=== PATIENT | male | born 1955 | race Caucasian/White ===

== ENCOUNTER 2019-02-19 17:15 | Emergency (ER) | payer MEDICAID ==
[~2019-02-19] VITALS: Ht 175.3 cm; Wt 68.2 kg
[~2019-02-19 17:15] MED LIST: DEPAKOTE250 MG PO; GEODON20 MG PO; GLUCOPHAGE500 MG PO; GLUCOTROL 5 MG T5 MG PO; LYRICA75 MG PO; PLAVIX75 MG PO; ZYPREXA20 MG PO
[2019-02-19 17:19] VITALS: BP 118/52; Ht 175.3 cm; Wt 68.2 kg
[2019-02-19 17:58] LABS: APPEARANCE HAZY (CLEAR); BILIRUBIN NEGATIVE (NEGATIVE); COLOR YELLOW (YELLOW); GLUCOSE NEGATIVE (NEGATIVE); KETONE NEGATIVE (NEGATIVE); NITRITE POSITIVE (NEGATIVE); PROTEIN 1+ mg/dL (NEGATIVE); UROBILINOGEN NORMAL (NORMAL)
[2019-02-19 17:59] LABS: BACTERIA MANY /hpf (NONE SEEN)
[2019-02-19 19:30] LABS: BASOPHILS 0.1 % (0-2); EOSINOPHILS 3.4 % (0-7); HEMATOCRIT 33.7 % (42.0-54.0); HEMOGLOBIN 11.6 g/dL (13.5-17.5); IMMATURE GRANULOCYTES 0.1 % (0-5); MCH 29.1 pg (26.0-34.0); MCHC 34.4 g/dL (31.0-37.0); MCV 84.5 fL (80.0-100.0); MEAN PLATELET VOLUME 8.5 fL (7.4-10.4); NEUTROPHILS 69.4 % (40-80); RBC 3.99 10x6/uL (4.20-6.10); RDW 13.6 % (11.5-14.5); WBC 9.2 10x3/uL (4.8-10.8)
[2019-02-19 19:33] LABS: PLATELET COUNT 165 10x3/uL (130-400)
[2019-02-19 19:56] LABS: ALBUMIN 2.9 g/dL (3.4-5.0); ANION GAP 11.4 mmol/L (8-16); BILIRUBIN - TOTAL 0.41 mg/dL (0.2-1.3); CALCIUM 8.2 mg/dL (8.5-10.1); CARBON DIOXIDE 26.5 mmol/L (21.0-32.0); CREATININE - SERUM 1.3 mg/dL (0.6-1.3); POTASSIUM - SERUM 3.9 mmol/L (3.5-5.1); PROTEIN - SERUM 6.5 g/dL (6.4-8.2)
[2019-02-19] MEDS ORDERED: KEFLEX500 MG PO (20:09)
== END 2019-02-19 21:39 | disposition home or self-care (01) ==
LOC: D.ER 17:15
PROVIDERS: Family Medicine
DX: N39.0 Urinary tract infection, site not specified (principal); T83.518A Infection and inflammatory reaction due to other urinary catheter, initial encounter

== ENCOUNTER 2020-03-09 23:28 | Inpatient (IN) | payer MEDICARE ==
[~2020-03-09] VITALS: Ht 175.3 cm; Wt 61.7 kg
[2020-03-09 23:28] VITALS: BP 98/51
[~2020-03-09 23:28] MED LIST changes: +KEFLEX500 MG PO
[2020-03-09] MEDS ORDERED: NEURONTIN 300300 MG PO (23:33)
[2020-03-09] MEDS ORDERED: VALIUM10 MG PO (23:33)
[2020-03-09] MEDS ORDERED: HYDROCODON-ACE1 EA10 PO (23:33)
[2020-03-09] MEDS ORDERED: CIPRO250 MG PO (23:34)
[2020-03-09] MEDS ORDERED: VENTOLIN HFA [SP8 GM INH (23:34)
[2020-03-10] VITALS (85 sets, daily range): BP systolic 70–141; BP diastolic 40–114; Ht 175.3 cm; Wt 61.7 kg
--- NOTE | 2020-03-10 00:16 | NUR ---
16 FR COUDE INDWELLING VILLA CATHETER INSERTED WITHOUT DIFFICULTY. BALLOON INFLATED WITH 10CC. 100 CC OF BLOOD TINGED OUTPUT AT INSERTION. SECURED TO RIGHT INNER THIGH. URINE SAMPLE SENT TO LAB. STERILE FIELD MAINTAINED. ORIGINAL INSERTION WITH 16 FR PROVED DIFFICULT WITH RESISTANCE. PT PRESENTED FROM EMS WITH BLOOD CLOTS ON PADS. 2 PADS SATURATED.
[2020-03-10 00:36] LABS: CALC OSMOLALITY 290 mosm/kg (275-300); CALCIUM 8.9 mg/dL (8.5-10.1); CARBON DIOXIDE 27.2 mmol/L (21.0-32.0); CHLORIDE - SERUM 104 mmol/L (98-107); CREATININE - SERUM 1.5 mg/dL (0.6-1.3); GLUCOSE 174 mg/dL (74-106); POTASSIUM - SERUM 4.6 mmol/L (3.5-5.1); SODIUM 140 mmol/L (136-145); UREA NITROGEN 36 mg/dL (7-18); eGFR NON AFRICAN AMERICAN 49 mL/min (90-120)
[2020-03-10 00:48] LABS: HEMATOCRIT 43.7 % (42.0-54.0); HEMOGLOBIN 14.7 g/dL (13.5-17.5); MCH 30.5 pg (26.0-34.0); MCHC 33.6 g/dL (31.0-37.0); MCV 90.7 fL (80.0-100.0); MEAN PLATELET VOLUME 8.6 fL (7.4-10.4); RBC 4.82 10x6/uL (4.20-6.10); RDW 14.1 % (11.5-14.5)
[2020-03-10 00:49] LABS: ALKALINE PHOSPHATASE 83 U/L (30-120); BILIRUBIN - TOTAL 0.67 mg/dL (0.2-1.3); C-REACTIVE PROTEIN 1.5 mg/dL (0.0-0.9); MAGNESIUM - SERUM 1.6 mg/dL (1.8-2.4); PRO BNP 679 pg/mL (0-125); PROTEIN - SERUM 7.2 g/dL (6.4-8.2); THYROID STIMULATING HORMONE 1.05 uIU/mL (0.36-3.74)
[2020-03-10 00:57] LABS: PLATELET COUNT 110 10x3/uL (130-400); WBC 1.6 10x3/uL (4.8-10.8)
[2020-03-10 01:01] LABS: BILIRUBIN NEGATIVE (NEGATIVE); GLUCOSE NEGATIVE (NEGATIVE); KETONE NEGATIVE (NEGATIVE); NITRITE NEGATIVE (NEGATIVE); UROBILINOGEN NORMAL (NORMAL)
[2020-03-10 01:02] LABS: BACTERIA MANY /hpf (NEGATIVE); EPITHELIAL CELLS 0-5 /hpf (0-5); WHITE CELLS - URINE 0-5 /hpf (NEGATIVE)
[2020-03-10 01:06] LABS: LIPASE 35 U/L (73-393); TROPONIN-I < 0.017 ng/mL (0.000-0.060)
[2020-03-10 01:19] LABS: ALT (SGPT) 27 U/L (10-68)
[2020-03-10 01:21] LABS: LYMPHOCYTES 9 % (15-50); NEUTROPHILS 75 % (40-80); PLATELET ESTIMATE DECREASED
--- NOTE | 2020-03-10 03:30 | NUR ---
PT ARRIVED TO UNIT ACCOMPANIED BY HOSPITAL STAFF. TRANSFERRED TO BED WITHOUT DIFFICULTY. ASSESSMENT COMPLETED, SEE FLOWSHEET. PIV IN LEFT EJ, LEFT WRIST INFUSING, SEE IV FLOWSHEET.
[2020-03-10 04:27] LABS: BASOPHILS 0.1 % (0-2); EOSINOPHILS 0.1 % (0-7); HEMATOCRIT 37.4 % (42.0-54.0); HEMOGLOBIN 12.1 g/dL (13.5-17.5); LYMPHOCYTES 3.9 % (15-50); MCH 29.7 pg (26.0-34.0); MCHC 32.4 g/dL (31.0-37.0); MCV 91.7 fL (80.0-100.0); MEAN PLATELET VOLUME 8.9 fL (7.4-10.4); MONOCYTES 1.3 % (2-11); NEUTROPHILS 94.6 % (40-80); PLATELET COUNT 117 10x3/uL (130-400); RBC 4.08 10x6/uL (4.20-6.10); RDW 14.2 % (11.5-14.5)
[2020-03-10 04:46] LABS: APTT 29.6 SECONDS (22.8-39.4); INR 1.31 (0.85-1.17); PROTIME 16.2 SECONDS (11.6-15.0)
[2020-03-10 04:49] LABS: ANION GAP 12.5 mmol/L (8-16); BILIRUBIN - TOTAL 0.53 mg/dL (0.2-1.3); CALCIUM 7.6 mg/dL (8.5-10.1); CARBON DIOXIDE 24.6 mmol/L (21.0-32.0); CREATININE - SERUM 1.8 mg/dL (0.6-1.3); MAGNESIUM - SERUM 1.5 mg/dL (1.8-2.4); POTASSIUM - SERUM 4.1 mmol/L (3.5-5.1); PROTEIN - SERUM 5.5 g/dL (6.4-8.2); WBC 7.1 10x3/uL (4.8-10.8)
[2020-03-10 04:51] LABS: D-DIMER-QUANTITATIVE 3.06 ug/mLFEU (0.20-0.54)
[2020-03-10 04:58] LABS: PHOSPHOROUS 1.5 mg/dL (2.5-4.9)
--- NOTE | 2020-03-10 05:00 | NUR ---
PT RESTING IN BED, NO ACUTE DISTRESS NOTED AT THIS TIME.
--- NOTE | 2020-03-10 07:45 | NUR ---
REPORT RECEIVED. PT LETHARGIC AND CONFUSED. IV TO LEFT HAND AND LEFT JUGULAR. LEVOPHED AND NS INFUSING. PHOSPHORUS AND MAGNESIUM BEING REPLACED. PT HAS VILLA IN PLACE. SOME TRAUMA DURING PLACEMENT. SOME BLOODY URINE. PT HAS BILATERAL AKAS. WOUND TO COCCYX. VSS. WILL CONTINUE TO MONITOR.
--- NOTE | 2020-03-10 09:56 | NUR ---
SODIUM PHOSPHATE DONE INFUSING. ORDER PLACED FOR LAB DRAW AT 1600 TO CHECK PHOSPHORUS. MAGNESIUM FINISHED INFUSING, WELL. LAB TO BE DRAWN WITH AM LABS 03/11/20 PER PROTOCOL.
--- NOTE | 2020-03-10 12:04 | NUR ---
WOUND CARE NURSE, SHAREE, ROUNDED ON PT. PT HAS HEALING STAGE 2S TO SACRUM AND TO COCCYX. BOTTOM CLEANED. BOUDREAX BUTT PASTE APPLIED. WEDGE USED TO TURN PT ON RIGHT SIDE. SPEECH PATHOLOGIST IN TO DO SWALLOW EVAL AT THIS TIME.
--- NOTE | 2020-03-10 12:13 | NUR ---
NEW ADMISSION FROM HOME. PT HAS A HISTORY OF PRESSURE INJURIES. CURRENTLY THERE IS A LARGE AMOUNT OF SCARRING NOTED FROM SACRUM TO COCCYX AND BUTTOCKS. THERE IS A HEALING STAGE 2 PRESSURE INJURY 0.5CM X 0.5CM ON RIGHT BUTTOCK NEAR COCCYX AREA AND A HEALING STAGE 2 PRESSURE INJURY AT SACRUM. BLANCHABLE REDNESS IS NOTED ON BUTTOCKS. DISCUSSED WITH PT CAREGIVER (LAVONNE MERINO [phone]) PT'S SKIN HISTORY. SHE STATES HE IS ON AN AIR OVERLAY AT HOME, CALMOSEPTINE CREAM IS USED AT HOME FOR SKIN PROTECTION AND NYSTATIN FOR FREQUENT EPISODES WITH "YEAST". INFORMED MS. MERINO THAT AN AIR OVERLAY MATTRESS HAS BEEN ORDERED AND WILL BE DELIVERED TO ICU WITHIN THE NEXT HOUR. WE ARE USING WEDGES TO REPOSITION PT. CAREGIVER ASKED IF HE COULD BRING THE WEDGES HOME WHEN HE DISCHARGED. SHE WAS INFORMED THAT THEY WERE HIS TO TAKE HOME. ALSO NOTIFIED HER THAT CALMOSEPTINE AND NYSTATING WILL BE ORDERED VIA PHARMACY. SHE VOICED HER UNDERSTANDING AND THANKS. WOUND CARE WILL CONTINUE TO MONITOR.
--- NOTE | 2020-03-10 12:53 | NUR ---
MAG CITRATE MIXED WITH HONEY THICKENED LIQUIDS FOR PT TO DRINK. WILL MONITOR.
--- NOTE | 2020-03-10 15:27 | NUR ---
900ML OF SOAP SUDS ENEMA ADMINISTERED TO PT. PLACED PT ON BEDPAN. WILL MONITOR.
--- NOTE | 2020-03-10 16:03 | NUR ---
SMALL SOFT BOWEL MOVEMENT. PT CLEANED. BARRIER CREAM APPLIED.
--- NOTE | 2020-03-10 17:12 | NUR ---
PT HAD SMALL BM PER PCT, CASI. PT CLEANED UP.
--- NOTE | 2020-03-10 18:16 | NUR ---
1ST STEP SELECT OVERLAY APPLIED TO PT'S BED. PT HAD SMALL BOWEL SMEAR. CLEANED. BUTT PASTE APPLIED. PT REPOSITIONED FOR COMFORT.
--- NOTE | 2020-03-10 19:00 | NUR ---
SHIFT ASSESSMENT COMPLETED. PT CARE ASSUMED, MONITORS ON AND WORKING, VITALS STABLE. PT RESTING, SEE FLOW SHEET FOR FURTHER DETAILS. WILL CONTINUE TO OBSERVE.
--- NOTE | 2020-03-10 21:00 | NUR ---
PT TURNED AND REPOSITIONED FOR COMFORT, MONITORS ON AND WORKING, PT AWAKE AND ALERT AT THIS TIME, VILLA BLOODY AROUND MEATUS. CALL LIGHT WITHIN REACH, WILL CONTINUE TO OBSERVE.
--- NOTE | 2020-03-10 23:00 | NUR ---
PT TURNED AND REPOSITIONED FOR COMFORT, PT CLEANED FROM SMALL BM, MONITORS ON AND WORKING, VITALS STABLE. CALL LIGHT WITHIN REACH, SEE FLOW SHEET FOR FURTHER DETAILS. WILL CONTINUE TO OBSERVE.
[2020-03-11] VITALS (39 sets, daily range): BP systolic 79–114; BP diastolic 39–86
--- NOTE | 2020-03-11 01:00 | NUR ---
PT TURNED AND REPOSITIONED FOR COMFORT. MONITORS ON AND WORKING, VITALS STABLE, PT AWAKE AND ALERT, CALL LIGHT WITHIN REACH, WILLC ONTINUE TO BSERE.
--- NOTE | 2020-03-11 03:00 | NUR ---
PT CLEANED FROM SMALL BM, PT TURNED AND REPOSITIONED FOR COMFORT, MONITORS ON AND WORKING, VITALS STABLE, CALL LIGHT WITHIN REACH SEE FLOW SHEET FOR FURTHER DETIALS, WILL CONTINUE TO OBSERVE.
[2020-03-11 04:24] LABS: BASOPHILS 0.2 % (0-2); EOSINOPHILS 0.1 % (0-7); HEMATOCRIT 36.9 % (42.0-54.0); HEMOGLOBIN 11.8 g/dL (13.5-17.5); IMMATURE GRANULOCYTES 0.2 % (0-5); LYMPHOCYTES 10.6 % (15-50); MCH 29.3 pg (26.0-34.0); MCV 91.6 fL (80.0-100.0); MEAN PLATELET VOLUME 9.1 fL (7.4-10.4); MONOCYTES 6.2 % (2-11); NEUTROPHILS 82.7 % (40-80); PLATELET COUNT 108 10x3/uL (130-400); RBC 4.03 10x6/uL (4.20-6.10); RDW 15.1 % (11.5-14.5)
[2020-03-11 04:44] LABS: WBC 17.3 10x3/uL (4.8-10.8)
[2020-03-11 04:50] LABS: ALBUMIN 2.8 g/dL (3.4-5.0); ANION GAP 11.4 mmol/L (8-16); BILIRUBIN - TOTAL 0.46 mg/dL (0.2-1.3); CALCIUM 7.2 mg/dL (8.5-10.1); CARBON DIOXIDE 24.9 mmol/L (21.0-32.0); CREATININE - SERUM 1.6 mg/dL (0.6-1.3); PHOSPHOROUS 3.2 mg/dL (2.5-4.9); POTASSIUM - SERUM 4.3 mmol/L (3.5-5.1); VANCOMYCIN - RANDOM 8.8 ug/mL (10.0-20.0)
[2020-03-11 04:54] LABS: MAGNESIUM - SERUM 2.5 mg/dL (1.8-2.4)
--- NOTE | 2020-03-11 05:00 | NUR ---
NO CHANGES, MONITORS ON AND WORKING, VITALS STABLE, WILL CONTINUE OT OBSERVE.
--- NOTE | 2020-03-11 07:27 | NUR ---
REPORT RECEIVED. PT RESTING QUIETLY. LEVOPHED TITRATED OFF DURING SOFTWARE ENGINEERING ANALYST. IV TO LEFT EJ AND LEFT HAND. PT HAS HISTORY OF SVETLANA AKA. HEALING STAGE 2 PRESSURE ULCERS TO COCCYX AND SACRUM. VILLA. VSS. WILL CONTINUE TO MONITOR.
--- NOTE | 2020-03-11 08:03 | NUR ---
Nutrition follow-up: Diet advanced to regular puree with honey thick liquids per speech path PO intake not recorded Labs reviewed Wt: 135# Multiple BM's recorded RDN following.
--- NOTE | 2020-03-11 09:15 | NUR ---
PT HAD CHG BATH. BUTT PASTE APPLIED. VSS. WILL CONTINUE TO MONITOR.
--- NOTE | 2020-03-11 14:10 | NUR ---
PT RESTING QUIETLY. CORI CHANDLER. VSS. WILL CONTINUE TO MONITOR.
--- NOTE | 2020-03-11 18:37 | NUR ---
CALLED MED SURG TO GIVE REPORT FOR PT GOING TO ROOM 2208. WAS TOLD THAT NURSE COULDN'T TAKE REPORT RIGHT NOW AND TO TRY TO CALL BACK IN 5 MINUTES.
--- NOTE | 2020-03-11 18:45 | NUR ---
REPORT GIVEN TO LORIN ANDRES.
--- NOTE | 2020-03-11 19:25 | NUR ---
RECIEVED PT FROM ICU. VIA STRECHER BROUGHT BY HOSPITAL STAFF. NO SIGNS OF DISTRESS NOTED. BED ALARM ON AND ACTIVE. CALL LIGHT AND OTHER PERSONAL BELONGINGS ARE WITH IN REACH WILL CONTINUE TO MONITOR
--- NOTE | 2020-03-11 21:02 | MORECARE ---
CASE MANAGEMENT DISCHARGE SUMMARY PATIENT: EDMOND BAUMANN UNIT: [id number] ADM DATE: 03/10/20 AGE: 65 : 53 SEX: M ROOM/BED: D.2208 AUTHOR: ADRIÁN ARRINGTON PHYSICIAN: REFERRING PHYSICIAN: MARCO CALVILLO MD DATE OF SERVICE: 03/11/20 Discharge Plan Patient Name: EDMOND BAUMANN [facility] [facility] 1955 Planned Disposition: Home with Home Health Anticipated Discharge Date: Discharge Date: Expected LOS: Initial Reviewer: [email or web address] Initial Review Date: 03/10/2020 Generated: 03/11/20 10:02 pm DCPIA - Discharge Planning Initial Assessment Updated by [email or web address]: Maritza Palumbo on 03/11/20 9:01 pm * Is the patient Alert and Oriented? Yes * How many steps to enter\exit or inside your home? ramp * PCP NAHUM * Pharmacy [facility] * Preadmission Environment Home with Family * ADLs Total Dependent * Other Equipment HOSPITAL BED, CAMI LIFT, W/C, SC * List name and contact numbers for known caregivers / representatives who currently or will assist patient after discharge: WALLY MERINO ANJU [phone] * Verbal permission to speak to the caregivers and representatives has been obtained from the patient. Yes * Community resources currently utilized Home Health * Please name any agencies selected above. [facility] * Additional services required to return to the preadmission environment? No * Can the patient safely return to the preadmission environment? Yes * Has this patient been hospitalized within the prior 30 days at any hospital? No Patient Name: EDMOND BAUMANN Page [phone] at 2102 All edits/amendments must be made on the electronic document DICTATION DATE: 03/11/202101 SALES CLERK: GRIFFIN 03/11/202101 RPT#: [id number] DC DATE: STATUS: ADM IN [facility] [address] [place] [address] END OF REPORT
--- NOTE | 2020-03-11 21:09 | MORECARE ---
CASE MANAGEMENT DISCHARGE SUMMARY PATIENT: EDMOND BAUMANN UNIT: [id number] ADM DATE: 03/10/20 AGE: 65 : 53 SEX: M ROOM/BED: D.2208 AUTHOR: MURPHY,DOC PHYSICIAN: REFERRING PHYSICIAN: MARCO CALVILLO MD DATE OF SERVICE: 03/11/20 Discharge Plan Patient Name: EDMOND BAUMANN Facility: [facility]:[place] : 1955 Planned Disposition: Home with Home Health Anticipated Discharge Date: Discharge Date: Expected LOS: Initial Reviewer: [id number] Initial Review Date: 03/10/2020 Generated: 03/11/20 10:08 pm Comments DCP- Discharge Planning Updated by [email or web address]: Maritza Palumbo on 03/11/20 8:[address] Patient Name: EDMOND BAUMANN Admission Status: ER Accout number: [id number] Admission Date: 03-10-2020 : 1955 Admission Diagnosis: Attending: MARCO CALVILLO Current LOS: 1 Anticipated DC Date: Planned Disposition: Home with Home Health Primary Insurance: MEDICARE A & B Discharge Planning Comments: CM met with patient at bedside after explaining CM role and obtaining verbal consent. Patient lives at home with his brother where he is total care and plans to return there upon discharge. Patient feels this would be a safe discharge. CM discussed availability / needs of home health and medical equipment. [facility] and plans to [facility] care IVETH completed. Patient denies any discharge needs at this time. Patient will need ambulance to transport home upon discharge. CM will continue to follow and assist as needed with discharge planning / needs. Gauge Maker: Maritza Palumbo DCPIA - Discharge Planning Initial Assessment Updated by [email or web address]: Maritza Palumbo on 03/11/20 9:01 pm * Is the patient Alert and Oriented? Yes * How many steps to enter\exit or inside your home? ramp * PCP NAHUM * Pharmacy [facility] * Preadmission Environment Home with Family * ADLs Total Dependent * Other Equipment HOSPITAL BED, CAMI LIFT, W/C, SC * List name and contact numbers for known caregivers / representatives who currently or will assist patient after discharge: JUNIOR TUCKERIAN - [phone] * Verbal permission to speak to the caregivers and representatives has been obtained from the patient. Yes * Community resources currently utilized Home Health * Please name any agencies selected above. [facility] * Additional services required to return to the preadmission environment? No * Can the patient safely return to the preadmission environment? Yes * Has this patient been hospitalized within the prior 30 days at any hospital? No Coverage Notice Reviewer: [id number] Ty Palumbo Notice Issued Date-Time: 03/11/2020 16:00 Notice Type: Patient Choice Letter Notice Delivered To: Family Member Relationship to Patient: Progressive Die Maker Name: Junior Monk Delivery Method: PHONE - Phone Amirah Days: Prior Verbal Notification: Yes Recipient Understood Notice: Yes Recipient Signature: Med Rec Note Co-signed by Attending: Coverage Notice Comment: Last DP export: 03/11/20 8:02 p Patient Name: EDMOND BAUMANN Page [phone] at 2109 All edits/amendments must be made on the electronic document DICTATION DATE: 03/11/202107 SERVICE STATION HELPER: GRIFFIN 03/11/202107 RPT#: [id number] DC DATE: STATUS: ADM IN [facility] [address] [place] [address] END OF REPORT
[2020-03-12] VITALS: BP 103/56
--- NOTE | 2020-03-12 02:56 | NUR ---
I have reviewed this patient and I concur with the Shift Assessment completed by the Licensed Practical Nurse today this shift.
[2020-03-12 04:00] VITALS: BP 123/57
[2020-03-12 05:32] LABS: BASOPHILS 0.2 % (0-2); EOSINOPHILS 1.4 % (0-7); HEMATOCRIT 30.9 % (42.0-54.0); HEMOGLOBIN 9.8 g/dL (13.5-17.5); IMMATURE GRANULOCYTES 0.4 % (0-5); LYMPHOCYTES 13.3 % (15-50); MCH 28.9 pg (26.0-34.0); MCHC 31.7 g/dL (31.0-37.0); MCV 91.2 fL (80.0-100.0); MEAN PLATELET VOLUME 9.4 fL (7.4-10.4); MONOCYTES 6.8 % (2-11); NEUTROPHILS 77.9 % (40-80); PLATELET COUNT 97 10x3/uL (130-400); RBC 3.39 10x6/uL (4.20-6.10); RDW 15.4 % (11.5-14.5)
[2020-03-12 06:09] LABS: ALBUMIN 2.5 g/dL (3.4-5.0); ANION GAP 13.1 mmol/L (8-16); BILIRUBIN - TOTAL 0.46 mg/dL (0.2-1.3); CALCIUM 7.3 mg/dL (8.5-10.1); CARBON DIOXIDE 22.2 mmol/L (21.0-32.0); CREATININE - SERUM 1.3 mg/dL (0.6-1.3); POTASSIUM - SERUM 4.3 mmol/L (3.5-5.1); PROTEIN - SERUM 5.5 g/dL (6.4-8.2); VANCOMYCIN - RANDOM 10.8 ug/mL (10.0-20.0)
[2020-03-12 06:57] LABS: WBC 11.4 10x3/uL (4.8-10.8)
--- NOTE | 2020-03-12 07:30 | NUR ---
PT A&O X4, SITTING SEMI FOWLERS IN BED. RR EVEN AND UNLABORED ON 2L NC. PT HAS A R IJ THAT IS SL, AND A L HAND INFUSING NS @75. HE HAS A VILLA DRAINING URINE. BED LOCKED AND IN LOWEST POSITION, CALL LIGHT WITHIN REACH. WILL CTM
--- NOTE | 2020-03-12 07:42 | NUR ---
PT LYING IN RESTING WITH EYES CLOSED. PT HAS HAD BMx2 DURING THE NIGHT. PT HAS NO COMPLAINTS AT THIS TIME. PT REPOSITIONED Q2 HOURS PER ORDER. CALL LIGHT WITH IN REACH AND FALL PRECAUTIONS ARE IN ORDER. SIDERAILS UP x2
[2020-03-12 08:25] LABS: PLATELET ESTIMATE DECREASED
[2020-03-12 08:27] LABS: ANISOCYTOSIS OCC
[2020-03-12 08:30] VITALS: BP 103/43
[2020-03-12 12:25] VITALS: BP 93/41
--- NOTE | 2020-03-12 16:37 | MORECARE ---
CASE MANAGEMENT DISCHARGE SUMMARY PATIENT: EDMOND BAUMANN UNIT: [id number] ADM DATE: 03/10/20 AGE: 65 : 53 SEX: M ROOM/BED: D.2208 AUTHOR: MURPHY,DOC PHYSICIAN: REFERRING PHYSICIAN: MARCO CALVILLO MD DATE OF SERVICE: 03/12/20 Discharge Plan Patient Name: EDMOND BAUMANN Facility: [facility]:[place] : 1955 Planned Disposition: Home with Home Health Anticipated Discharge Date: Discharge Date: Expected LOS: Initial Reviewer: [email or web address] Initial Review Date: 03/10/2020 Generated: 03/12/20 5:36 pm Comments DCP- Discharge Planning Updated by [email or web address]: Maritza Palumbo on 03/11/20 8:[address] Patient Name: EDMOND BAUMANN Admission Status: ER Accout number: [id number] Admission Date: 03-10-2020 : 1955 Admission Diagnosis: Attending: MARCO CALVILLO Current LOS: 1 Anticipated DC Date: Planned Disposition: Home with Home Health Primary Insurance: MEDICARE A & B Discharge Planning Comments: CM met with patient at bedside after explaining CM role and obtaining verbal consent. Patient lives at home with his brother where he is total care and plans to return there upon discharge. Patient feels this would be a safe discharge. CM discussed availability / needs of home health and medical equipment. [facility] and plans to resume care IVETH completed. Patient denies any discharge needs at this time. Patient will need ambulance to transport home upon discharge. CM will continue to follow and assist as needed with discharge planning / needs. Weir Fisherman: Maritza Palumbo DCPIA - Discharge Planning Initial Assessment Updated by [id number]: Maritza Palumbo on 03/11/20 9:01 pm * Is the patient Alert and Oriented? Yes * How many steps to enter\exit or inside your home? ramp * PCP NAHUM * Pharmacy [facility] * Preadmission Environment Home with Family * ADLs Total Dependent * Other Equipment HOSPITAL BED, CAMI LIFT, W/C, SC * List name and contact numbers for known caregivers / representatives who currently or will assist patient after discharge: JUNIOR TUCKERIAN - [phone] * Verbal permission to speak to the caregivers and representatives has been obtained from the patient. Yes * Community resources currently utilized Home Health * Please name any agencies selected above. [facility] * Additional services required to return to the preadmission environment? No * Can the patient safely return to the preadmission environment? Yes * Has this patient been hospitalized within the prior 30 days at any hospital? No External Providers External Provider: [facility] Next Contact Date: Service Request Date: Service Type: Resolution: Reviewer: Comments: Coverage Notice Reviewer: [id number] - Maritza Palumbo Notice Issued Date-Time: 03/11/2020 16:00 Notice Type: Patient Choice Letter Notice Delivered To: Family Member Relationship to Patient: Horticulture Instructor Name: Junior Monk Delivery Method: PHONE - Phone Amirah Days: Prior Verbal Notification: Yes Recipient Understood Notice: Yes Recipient Signature: Med Rec Note Co-signed by Attending: Coverage Notice Comment: Last DP export: 03/11/20 8:09 p Patient Name: EDMOND BAUMANN Page [id number] at 1637 All edits/amendments must be made on the electronic document DICTATION DATE: 03/12/20 163 PROOF TECHNICIAN: GRIFFIN 03/12/20 1636 RPT#: [id number] DC DATE: STATUS: ADM IN [facility] [address] [place] [address] END OF REPORT
--- NOTE | 2020-03-12 19:26 | NUR ---
I have reviewed this patient and I concur with the Shift Assessment completed by the Licensed Practical Nurse today this shift.
[2020-03-12 20:00] VITALS: BP 100/53
[2020-03-13] VITALS: BP 110/59
[2020-03-13 04:00] VITALS: BP 125/70
[2020-03-13 06:22] LABS: BASOPHILS 0.3 % (0-2); EOSINOPHILS 2.9 % (0-7); HEMATOCRIT 31.7 % (42.0-54.0); IMMATURE GRANULOCYTES 0.1 % (0-5); MCH 28.7 pg (26.0-34.0); MCHC 31.5 g/dL (31.0-37.0); MCV 91.1 fL (80.0-100.0); MEAN PLATELET VOLUME 9.5 fL (7.4-10.4); NEUTROPHILS 68.7 % (40-80); PLATELET COUNT 100 10x3/uL (130-400); RBC 3.48 10x6/uL (4.20-6.10); WBC 7.6 10x3/uL (4.8-10.8)
[2020-03-13 06:44] LABS: ALBUMIN 2.5 g/dL (3.4-5.0); ANION GAP 13.4 mmol/L (8-16); BILIRUBIN - TOTAL 0.4 mg/dL (0.2-1.3); CALCIUM 7.3 mg/dL (8.5-10.1); CARBON DIOXIDE 22.8 mmol/L (21.0-32.0); CREATININE - SERUM 1.2 mg/dL (0.6-1.3); POTASSIUM - SERUM 4.2 mmol/L (3.5-5.1); PROTEIN - SERUM 5.1 g/dL (6.4-8.2); VANCOMYCIN - RANDOM 11.8 ug/mL (10.0-20.0)
--- NOTE | 2020-03-13 07:50 | NUR ---
HE IS CONFUSED, THINKS IT'S 2006, HE WNATED HIS TV TURNED ON. THE CALL ARTI IS WITHIN REACH. HAS A VILLA WITH YELLOW URINE.
[2020-03-13 08:26] VITALS: BP 129/65
[2020-03-13 12:45] VITALS: BP 118/63
--- NOTE | 2020-03-13 14:15 | MORECARE ---
CASE MANAGEMENT DISCHARGE SUMMARY PATIENT: EDMOND BAUMANN UNIT: [id number] ADM DATE: 03/10/20 AGE: 65 : 53 SEX: M ROOM/BED: D.2208 AUTHOR: MURPHY,DOC PHYSICIAN: REFERRING PHYSICIAN: MARCO CALVILLO MD DATE OF SERVICE: 03/13/20 Discharge Plan Patient Name: EDMOND BAUMANN Facility: [facility]:[place] : 1955 Planned Disposition: Home with Home Health Anticipated Discharge Date: Discharge Date: Expected LOS: Initial Reviewer: [email or web address] Initial Review Date: 03/10/2020 Generated: 03/13/20 3:14 pm Comments DCP- Discharge Planning Updated by [email or web address]: Janki Harden on 03/13/20 1:[address] PATIENT WILL BE DISCHARGING HOME TODAT WITH IV ABX WITH [facility] AND HE IS CURRENT WITH [facility]. I HAVE SPOKEN WITH ARMAND MONK THE PATIENTS LEGAL GUARDIAN, SHE WILL BE HERE AT 3:30 TO GO OVER TEACHING WITH THE ABX. THE PATIENT WILL BE DISCHARGED HOME BY AMBULANCE. ARMAND ([phone]) CM WILL CONTINUE TO FOLLOW AND ASSIST NEEDED. IMM WENT OVER WITH ARMAND VIA PHONE AND COPY WILL BE GIVEN TO HERE WHEN SHE ARRIVES AT 3:30 DCP- Discharge Planning Updated by [id number]: Maritza Palumbo on 03/11/20 8:[address] Patient Name: EDMOND BAUMANN Admission Status: ER Accout number: [id number] Admission Date: 03-10-2020 : 1955 Admission Diagnosis: Attending: MARCO CALVILLO Current LOS: 1 Anticipated DC Date: Planned Disposition: Home with Home Health Primary Insurance: MEDICARE A & B Discharge Planning Comments: CM met with patient at bedside after explaining CM role and obtaining verbal consent. Patient lives at home with his brother where he is total care and plans to return there upon discharge. Patient feels this would be a safe discharge. CM discussed availability / needs of home health and medical equipment. [facility] has [facility] home health and plans to resume care IVETH completed. Patient denies any discharge needs at this time. Patient will need ambulance to transport home upon discharge. CM will continue to follow and assist as needed with discharge planning / needs. Welder And Fitter: Maritza HERMAN - Discharge Planning Initial Assessment Updated by [id number]: Maritza Palumbo on 03/11/20 9:01 pm * Is the patient Alert and Oriented? Yes * How many steps to enter\exit or inside your home? ramp * PCP NAHUM * Pharmacy [facility] * Preadmission Environment Home with Family * ADLs Total Dependent * Other Equipment HOSPITAL BED, CAMI LIFT, W/C, SC * List name and contact numbers for known caregivers / representatives who currently or will assist patient after discharge: [facility] - [phone] * Verbal permission to speak to the caregivers and representatives has been obtained from the patient. Yes * Community resources currently utilized Home Health * Please name any agencies selected above. [facility] * Additional services required to return to the preadmission environment? No * Can the patient safely return to the preadmission environment? Yes * Has this patient been hospitalized within the prior 30 days at any hospital? No Coverage Notice Reviewer: [id number] - Maritza Palumbo Notice Issued Date-Time: 03/11/2020 16:00 Notice Type: Patient Choice Letter Notice Delivered To: Family Member Relationship to Patient: Medicare Specialist Name: Junior Monk Delivery Method: PHONE - Phone Amirah Days: Prior Verbal Notification: Yes Recipient Understood Notice: Yes Recipient Signature: Med Rec Note Co-signed by Attending: Coverage Notice Comment: Reviewer: [id number] - Janki Harden Notice Issued Date-Time: 03/13/2020 13:30 Notice Type: IM Discharge Notice Notice Delivered To: Other Relationship to Patient: Legal Guardian Medicare Specialist Name: AMRAND MONK Delivery Method: PHONE - Phone Amirah Days: Prior Verbal Notification: Recipient Understood Notice: Yes Recipient Signature: Med Rec Note Co-signed by Attending: Coverage Notice Comment: OVER PHONE WITH ARMAND BECERRA export: 03/12/20 3:37 p Patient Name: EDMOND BAUMANN Page [phone] at 1415 All edits/amendments must be made on the electronic document DICTATION DATE: 03/13/20 1412 DIVISION OFFICER WEAPONS DEPARTMENT: GRIFFIN 03/13/201413 RPT#: [id number] DC DATE: STATUS: ADM IN [facility] [address] [place] [address] END OF REPORT
[2020-03-13] MEDS ORDERED: ROCEPHIN 2 GM/D5W 50 IV (14:42)
--- NOTE | 2020-03-13 15:05 | NUR ---
94% ON ROOM AIR AND 64 PULSE.
--- NOTE | 2020-03-13 15:35 | MORECARE ---
CASE MANAGEMENT DISCHARGE SUMMARY PATIENT: EDMOND BAUMANN UNIT: [id number] ADM DATE: 03/10/20 AGE: 65 : 51 SEX: M ROOM/BED: D.2208 AUTHOR: MURPHY,DOC PHYSICIAN: REFERRING PHYSICIAN: MARCO CALVILLO MD DATE OF SERVICE: 03/13/20 Discharge Plan Patient Name: EDMOND BAUMANN Facility: [facility]:[place] : 1955 Planned Disposition: Home with Home Health Anticipated Discharge Date: Discharge Date: Expected LOS: Initial Reviewer: [email or web address] Initial Review Date: 03/10/2020 Generated: 03/13/20 4:34 pm Comments DCP- Discharge Planning Updated by [id number]: Janki Harden on 03/13/20 2:[address] PATIENT WAS 94% ON ROOM AIR, WILL NOT NEED HOME O2 DCP- Discharge Planning Updated by [id number]: Janki Harden on 03/13/20 1:[address] PATIENT WILL BE DISCHARGING HOME TODAT WITH IV ABX WITH [facility] AND HE IS CURRENT WITH [facility]. I HAVE SPOKEN WITH ARMAND MONK THE PATIENTS LEGAL GUARDIAN, SHE WILL BE HERE AT 3:30 TO GO OVER TEACHING WITH THE ABX. THE PATIENT WILL BE DISCHARGED HOME BY AMBULANCE. ARMAND ([phone]) CM WILL CONTINUE TO FOLLOW AND ASSIST NEEDED. IMM WENT OVER WITH ARMAND VIA PHONE AND COPY WILL BE GIVEN TO HERE WHEN SHE ARRIVES AT 3:30 DCP- Discharge Planning Updated by [email or web address]: Maritza Palumbo on 03/11/20 8:[address] Patient Name: EDMOND BAUMANN Admission Status: ER Accout number: [id number] Admission Date: 03-10-2020 : 1955 Admission Diagnosis: Attending: MARCO CALVILLO Current LOS: 1 Anticipated DC Date: Planned Disposition: Home with Home Health Primary Insurance: MEDICARE A & B Discharge Planning Comments: CM met with patient at bedside after explaining CM role and obtaining verbal consent. Patient lives at home with his brother where he is total care and plans to return there upon discharge. Patient feels this would be a safe discharge. CM discussed availability / needs of home health and medical equipment. Patient has [facility] home health and plans to resume care IVETH completed. Patient denies any discharge needs at this time. Patient will need ambulance to transport home upon discharge. CM will continue to follow and assist as needed with discharge planning / needs. Bingo Worker: Maritza HERMAN - Discharge Planning Initial Assessment Updated by [id number]: Maritza Palumbo on 03/11/20 9:01 pm * Is the patient Alert and Oriented? Yes * How many steps to enter\exit or inside your home? ramp * PCP NAHUM * Pharmacy [facility] * Preadmission Environment Home with Family * ADLs Total Dependent * Other Equipment HOSPITAL BED, CAMI LIFT, W/C, SC * List name and contact numbers for known caregivers / representatives who currently or will assist patient after discharge: JUNIOR MONK - ANJU - [phone] * Verbal permission to speak to the caregivers and representatives has been obtained from the patient. Yes * Community resources currently utilized Home Health * Please name any agencies selected above. [facility] * Additional services required to return to the preadmission environment? No * Can the patient safely return to the preadmission environment? Yes * Has this patient been hospitalized within the prior 30 days at any hospital? No Coverage Notice Reviewer: [id number] - Maritza Palumbo Notice Issued Date-Time: 03/11/2020 16:00 Notice Type: Patient Choice Letter Notice Delivered To: Family Member Relationship to Patient: Beef Grinder Name: Junior Monk Delivery Method: PHONE - Phone Amirah Days: Prior Verbal Notification: Yes Recipient Understood Notice: Yes Recipient Signature: Med Rec Note Co-signed by Attending: Coverage Notice Comment: Reviewer: [id number] - Janki Harden Notice Issued Date-Time: 03/13/2020 13:30 Notice Type: IM Discharge Notice Notice Delivered To: Other Relationship to Patient: Legal Guardian Beef Grinder Name: ARMAND MONK Delivery Method: PHONE - Phone Amirah Days: Prior Verbal Notification: Recipient Understood Notice: Yes Recipient Signature: Med Rec Note Co-signed by Attending: Coverage Notice Comment: OVER PHONE WITH ARMAND BECERRA export: 03/13/20 1:15 p Patient Name: EDMOND BAUMANN Page [phone] at 1535 All edits/amendments must be made on the electronic document DICTATION DATE: 03/13/201534 BRIM FLEXER: GRIFFIN 03/13/20 153 [facility]#: [id number] DC DATE: STATUS: ADM IN [facility] [address] [place] [address] END OF REPORT
--- NOTE | 2020-03-13 15:43 | MORECARE ---
CASE MANAGEMENT DISCHARGE SUMMARY PATIENT: EDMOND BAUMANN UNIT: [id number] ADM DATE: 03/10/20 AGE: 65 : 51 SEX: M ROOM/BED: D.2208 AUTHOR: MURPHY,DOC PHYSICIAN: REFERRING PHYSICIAN: MARCO CALVILLO MD DATE OF SERVICE: 03/13/20 Discharge Plan Patient Name: EDMOND BAUMANN Facility: [facility]:[place] : 1955 Planned Disposition: Home with Home Health Anticipated Discharge Date: Discharge Date: Expected LOS: Initial Reviewer: [email or web address] Initial Review Date: 03/10/2020 Generated: 03/13/20 4:43 pm Comments DCP- Discharge Planning Updated by [id number]: Janki Harden on 03/13/20 2:[address] I HAVE SPOKE WITH RONNIE AT [facility] AND THEY WILL BE AT THE PATIENTS HOME TOMORROW FOR IV ABX DCP- Discharge Planning Updated by [id number]: Janki Harden on 03/13/20 2:[address] PATIENT WAS 94% ON ROOM AIR, WILL NOT NEED HOME O2 DCP- Discharge Planning Updated by [id number]: Janki Harden on 03/13/20 1:[address] PATIENT WILL BE DISCHARGING HOME TODAT WITH IV ABX WITH [facility] AND HE IS CURRENT WITH [facility]. I HAVE SPOKEN WITH ARMAND TRUJILLOPSON THE PATIENTS LEGAL GUARDIAN, SHE WILL BE HERE AT 3:30 TO GO OVER TEACHING WITH THE ABX. THE PATIENT WILL BE DISCHARGED HOME BY AMBULANCE. ARMAND ([phone]) JOSH WILL CONTINUE TO FOLLOW AND ASSIST NEEDED. IMM WENT OVER WITH ARMAND VIA PHONE AND COPY WILL BE GIVEN TO HERE WHEN SHE ARRIVES AT 3:30 DCP- Discharge Planning Updated by [id number]: Maritza Palumbo on 03/11/20 8:[address] Patient Name: EDMOND BAUMANN Admission Status: ER Accout number: [id number] Admission Date: 03-10-2020 : 1955 Admission Diagnosis: Attending: MARCO CALVILLO Current LOS: 1 Anticipated DC Date: Planned Disposition: Home with Home Health Primary Insurance: MEDICARE A & B Discharge Planning Comments: CM met with patient at bedside after explaining CM role and obtaining verbal consent. Patient lives at home with his brother where he is total care and plans to return there upon discharge. Patient feels this would be a safe discharge. CM discussed availability / needs of home health and medical equipment. Patient has home health and plans to resume care IVETH completed. Patient denies any discharge needs at this time. Patient will need ambulance to transport home upon discharge. CM will continue to follow and assist as needed with discharge planning / needs. Lozenge Maker: Maritza QUEENA - Discharge Planning Initial Assessment Updated by [email or web address]: Maritza Palumbo on 03/11/20 9:01 pm * Is the patient Alert and Oriented? Yes * How many steps to enter\exit or inside your home? ramp * PCP NAHUM * Pharmacy [facility] * Preadmission Environment Home with Family * ADLs Total Dependent * Other Equipment HOSPITAL BED, [facility]I LIFT, W/C, SC * List name and contact numbers for known caregivers / representatives who currently or will assist patient after discharge: JUNIOR MERINO ANJU - [phone] * Verbal permission to speak to the caregivers and representatives has been obtained from the patient. Yes * Community resources currently utilized Home Health * Please name any agencies selected above. HOME HEALTH * Additional services required to return to the preadmission environment? No * Can the patient safely return to the preadmission environment? Yes * Has this patient been hospitalized within the prior 30 days at any hospital? No External Providers [facility] Next Contact Date: Service Request Date: Service Type: Resolution: Reviewer: Comments: Coverage Notice Reviewer: [id number] - Maritza Palumbo Notice Issued Date-Time: 03/11/2020 16:00 Notice Type: Patient Choice Letter Notice Delivered To: Family Member Relationship to Patient: [employer] Director Name: Junior Merino Delivery Method: PHONE - Phone Amirah Days: Prior Verbal Notification: Yes Recipient Understood Notice: Yes Recipient Signature: Med Rec Note Co-signed by Attending: Coverage Notice Comment: Reviewer: [id number] Ty Harden Notice Issued Date-Time: 03/13/2020 13:30 Notice Type: IM Discharge Notice Notice Delivered To: Other Relationship to Patient: Legal Guardian [employer] Director Name: ARMAND MERINO Delivery Method: PHONE - Phone Amirah Days: Prior Verbal Notification: Recipient Understood Notice: Yes Recipient Signature: Med Rec Note Co-signed by Attending: Coverage Notice Comment: OVER PHONE WITH ARMAND Mckinnon DP export: 03/13/20 2:35 p Patient Name: EDMOND BAUMANN Page [phone] at 1543 All edits/amendments must be made on the electronic document DICTATION DATE: 03/13/201542 MONUMENTAL STONEMASON: GRIFFIN 03/13/20 154 RPT#: [id number] DC DATE: STATUS: ADM IN [facility] [address] [place] [address] END OF REPORT
--- NOTE | 2020-03-13 18:19 | NUR ---
DRESSING CHANGED TO THE LEFT MID-LINE IV SITE. REMOVED THE PIV TO THE LEFT WRIST. CALLED REPORT FOR A CAVING GUIDE TO [facility]. SPOKE WITH WALLY REGARDING DISCHARGE. I ANSWERED HER QUESITONS. SHE WILL BE DOING HIS HOME ANTIBIOTCS.
--- NOTE | 2020-03-13 20:23 | NUR ---
PT WAS DISCHARGED ON DAY SHIFT AND WAITING FOR AMBULANCE TO TAKE HIM HOME AT THE BEGINNING OF THE SHIFT. HE WAS PICKED UP AT 1999 AND ALL PERSONAL ITEMS WERE BAGGED AND TAKEN WITH HIM. HE ONLY HAD ONE MIDLINE IV SITE WHICH WAS SALINE LOCKED. GOOD MOOD AND HAPPY TO BE GOING. PAPER WORK GIVEN TO EMS.
--- NOTE | 2020-03-14 09:49 | MORECARE ---
CASE MANAGEMENT DISCHARGE SUMMARY PATIENT: EDMOND BAUMANN UNIT: [id number] ADM DATE: 03/10/20 AGE: 65 : 53 SEX: M ROOM/BED: D.2208 AUTHOR: MURPHY,DOC PHYSICIAN: REFERRING PHYSICIAN: MARCO CALVILLO MD DATE OF SERVICE: 03/14/20 Discharge Plan Patient Name: EDMOND BAUMANN Facility: [facility]:[place] : 1955 Planned Disposition: Home with Home Health Anticipated Discharge Date: Discharge Date: 03/13/2020 Expected LOS: Initial Reviewer: [email or web address] Initial Review Date: 03/10/2020 Generated: 03/14/20 10:49 am Comments DCP- Discharge Planning Updated by [email or web address]: Janki Harden on 03/13/20 2:[address] I HAVE SPOKE WITH RONNIE AT [facility] AND THEY WILL BE AT THE PATIENTS HOME TOMORROW FOR IV ABX DCP- Discharge Planning Updated by [id number]: Janki Harden on 03/13/20 2:[address] PATIENT WAS 94% ON ROOM AIR, WILL NOT NEED HOME O2 DCP- Discharge Planning Updated by [email or web address]: Janki Harden on 03/13/20 1:[address] PATIENT WILL BE DISCHARGING HOME TODAT WITH IV ABX WITH [facility] AND HE IS CURRENT WITH [facility]. I HAVE SPOKEN WITH ARMAND TRUJILLOPSON THE PATIENTS LEGAL GUARDIAN, SHE WILL BE HERE AT 3:30 TO GO OVER TEACHING WITH THE ABX. THE PATIENT WILL BE DISCHARGED HOME BY AMBULANCE. ARMAND ([phone]) JOSH WILL CONTINUE TO FOLLOW AND ASSIST NEEDED. IMM WENT OVER WITH ARMAND VIA PHONE AND COPY WILL BE GIVEN TO HERE WHEN SHE ARRIVES AT 3:30 DCP- Discharge Planning Updated by [id number]: Maritza Palumbo on 03/11/20 8:[address] Patient Name: EDMOND BAUMANN Admission Status: ER Accout number: [id number] Admission Date: 03-10-2020 : 1955 Admission Diagnosis: Attending: MARCO CALVILLO Current LOS: 1 Anticipated DC Date: Planned Disposition: Home with Home Health Primary Insurance: MEDICARE A & B Discharge Planning Comments: CM met with patient at bedside after explaining CM role and obtaining verbal consent. Patient lives at home with his brother where he is total care and plans to return there upon discharge. Patient feels this would be a safe discharge. CM discussed availability / needs of home health and medical equipment. Patient has [facility] home health and plans to resume care IVETH completed. Patient denies any discharge needs at this time. Patient will need ambulance to transport home upon discharge. CM will continue to follow and assist as needed with discharge planning / needs. Car Coupler: Maritza HERMAN - Discharge Planning Initial Assessment Updated by [email or web address]: Maritza Palumbo on 03/11/20 9:01 pm * Is the patient Alert and Oriented? Yes * How many steps to enter\exit or inside your home? ramp * PCP NAHUM * Pharmacy [facility] * Preadmission Environment Home with Family * ADLs Total Dependent * Other Equipment HOSPITAL BED, [employer] LIFT, W/C, SC * List name and contact numbers for known caregivers / representatives who currently or will assist patient after discharge: JUNIOR MERINO ANJU - [phone] * Verbal permission to speak to the caregivers and representatives has been obtained from the patient. Yes * Community resources currently utilized Home Health * Please name any agencies selected above. [facility] * Additional services required to return to the preadmission environment? No * Can the patient safely return to the preadmission environment? Yes * Has this patient been hospitalized within the prior 30 days at any hospital? No Coverage Notice Reviewer: [id number] - Maritza Palumbo Notice Issued Date-Time: 03/11/2020 16:00 Notice Type: Patient Choice Letter Notice Delivered To: Family Member Relationship to Patient: Program Control Analyst Name: Junior Merino Delivery Method: PHONE - Phone Amirah Days: Prior Verbal Notification: Yes Recipient Understood Notice: Yes Recipient Signature: Med Rec Note Co-signed by Attending: Coverage Notice Comment: Reviewer: [id number] - Janki Harden Notice Issued Date-Time: 03/13/2020 13:30 Notice Type: IM Discharge Notice Notice Delivered To: Other Relationship to Patient: Legal Guardian Program Control Analyst Name: ARMAND MERINO Delivery Method: PHONE - Phone Amirah Days: Prior Verbal Notification: Recipient Understood Notice: Yes Recipient Signature: Med Rec Note Co-signed by Attending: Coverage Notice Comment: OVER PHONE WITH ARMAND Mckinnon DP export: 03/13/20 2:43 p Patient Name: EDMOND BAUMANN Page [phone] at 0949 All edits/amendments must be made on the electronic document DICTATION DATE: 03/14/20948 BEND SORTER: GRIFFIN 03/14/2049 RPT#: [id number] DC DATE:03/13/20 STATUS: DIS IN [facility] [address] [place] [address] END OF REPORT
== END 2020-03-13 20:00 | disposition home health service (06) | DRG 698 ==
LOC: D.ER 23:28 → D.MS 03-10 02:17 → D.ICU 03-10 02:17 → D.MS 03-11 19:12
PROVIDERS: Family Medicine; ADMIT Internal Medicine Nephrology; ATTEND Internal Medicine Nephrology
PROC: 05HC33Z Insertion of Infusion Device into Left Basilic Vein, Percutaneous Approach (ICD-10-PCS; principal; 2020-03-12)
PROC: B54NZZA Ultrasonography of Left Upper Extremity Veins, Guidance (ICD-10-PCS; 2020-03-12)
DX: T83.511A Infection and inflammatory reaction due to indwelling urethral catheter, initial encounter (principal); A41.9 Sepsis, unspecified organism; R65.21 Severe sepsis with septic shock; N17.9 Acute kidney failure, unspecified; N39.0 Urinary tract infection, site not specified; I12.9 Hypertensive chronic kidney disease with stage 1 through stage 4 chronic kidney disease, or unspecified chronic kidney disease; N18.9 Chronic kidney disease, unspecified; J44.9 Chronic obstructive pulmonary disease, unspecified; F41.8 Other specified anxiety disorders; F03.90 Unspecified dementia, unspecified severity, without behavioral disturbance, psychotic disturbance, mood disturbance, and anxiety; K81.9 Cholecystitis, unspecified; Z89.512 Acquired absence of left leg below knee; Z89.511 Acquired absence of right leg below knee

== ENCOUNTER 2020-03-09 23:28 | Outpatient (CLI) | payer MEDICARE ==
[2020-03-09] MEDS ORDERED: HYDROCODON-ACE1 EA10 PO (23:33)
[2020-03-09] MEDS ORDERED: NEURONTIN 300300 MG PO (23:33)
[2020-03-09] MEDS ORDERED: VALIUM10 MG PO (23:33)
[2020-03-09] MEDS ORDERED: VENTOLIN HFA [SP8 GM INH (23:34)
[2020-03-09] MEDS ORDERED: CIPRO250 MG PO (23:34)
== END 2020-03-10 02:17 | disposition other institution (70) ==
LOC: D.OPS 23:28
PROVIDERS: ATTEND Internal Medicine Nephrology
DX: T83.511A Infection and inflammatory reaction due to indwelling urethral catheter, initial encounter (principal); A41.9 Sepsis, unspecified organism; R65.21 Severe sepsis with septic shock; N17.9 Acute kidney failure, unspecified; I12.9 Hypertensive chronic kidney disease with stage 1 through stage 4 chronic kidney disease, or unspecified chronic kidney disease; N18.9 Chronic kidney disease, unspecified; J44.9 Chronic obstructive pulmonary disease, unspecified; F41.8 Other specified anxiety disorders